=== PATIENT | female | born 1950 | race Caucasian/White ===

== ENCOUNTER 2025-01-26 07:28 | Inpatient (IN) ==
--- NOTE | 2024-12-27 09:13 | PAT Medication Instructions ---
Medication Instructions Date of Service December 27, 2024 Home Medications acyclovir 400 mg tablet 400 mg PO QAM aspirin 81 mg tablet,delayed release 81 mg PO QAM atorvastatin 40 mg tablet 40 mg PO HS bumetanide 1 mg tablet 1 mg PO QAM cholecalciferol (vitamin D3) 25 mcg (1,000 unit) tablet (Vitamin D3) 25 mcg PO QAM coQ10 (ubiquinol) 200 mg capsule 400 mg PO QAM cyanocobalamin (vitamin B-12) 2,500 mcg tablet 2,500 mcg PO QAM levothyroxine 100 mcg tablet 100 mcg PO QAM magnesium citrate 100 mg capsule 100 mg PO HS metoprolol succinate 25 mg tablet,extended release 24 hr 12.5 mg PO QAM montelukast 10 mg tablet 10 mg PO HS pantoprazole 40 mg tablet,delayed release 40 mg PO QAM potassium chloride 20 mEq tablet,extended release 20 meq PO BID sertraline 25 mg tablet 25 mg PO HS turmeric 400 mg capsule 400 mg PO QAM zinc 50 mg capsule 50 mg PO QAM ASK your prescriber and surgeon aspirin 81 mg tablet,delayed release 81 mg PO QAM STOP taking 2 weeks before surgery (or as soon as possible if surgery is within 2 weeks) coQ10 (ubiquinol) 200 mg capsule 400 mg PO QAM turmeric 400 mg capsule 400 mg PO QAM DO NOT take the morning of surgery bumetanide 1 mg tablet 1 mg PO QAM cholecalciferol (vitamin D3) 25 mcg (1,000 unit) tablet (Vitamin D3) 25 mcg PO QAM cyanocobalamin (vitamin B-12) 2,500 mcg tablet 2,500 mcg PO QAM potassium chloride 20 mEq tablet,extended release 20 meq PO BID zinc 50 mg capsule 50 mg PO QAM Take morning of surgery With a small sip of water, OTHERWISE NOTHING TO EAT OR DRINK AFTER MIDNIGHT: acyclovir 400 mg tablet 400 mg PO QAM levothyroxine 100 mcg tablet 100 mcg PO QAM metoprolol succinate 25 mg tablet,extended release 24 hr 12.5 mg PO QAM pantoprazole 40 mg tablet,delayed release 40 mg PO QAM Take evening before surgery atorvastatin 40 mg tablet 40 mg PO HS magnesium citrate 100 mg capsule 100 mg PO HS montelukast 10 mg tablet 10 mg PO HS potassium chloride 20 mEq tablet,extended release 20 meq PO BID sertraline 25 mg tablet 25 mg PO HS Other Notes If you have any questions please call us at [phone] or [phone] or [phone] or [phone]
--- NOTE | 2025-01-02 14:45 | Anesthesiology Consultation ---
Date of Service January 02, 2025 Assessment & Plan (1) Encounter for pre-operative examination: Chart Review Chart Review: Acceptable Risk for Surgery (pending surgeon ordered PCP and cardio clearances ) and Patient seen in Pre Admission Testing - Awaiting PCP clearance 01/08/25 (Radha ABDALLA, [facility])- please fax preop testing to PCP for review - Awaiting cardio clearance 01/09/25 ([facility])- please fax EKG to cardio for review Per PAT appt on 01/02/25, no recent illness/disease exposures, illness related symptoms, or recent illness/disease positive tests. Will leave to surgeon's discretion if preop Covid testing needed Teaching & Discussion Pre-Anesthesia Teaching/Discussion Notes: Instructed NPO after midnight before surgery,except medications with 15 cc of water. Medication instructions provided according to the PAT guidelines. History Surgery Operation Date: 01/26/25 09:35 Proposed Procedures p L1-L2 Decompression, T11-L2 Fusion, with Spinal Cord Monitoring - Lázaro Segundo, Height/Weight Height: 5 ft 5 in Weight: 86.4 kg Allergies Allergy/AdvReac Type Severity Reaction Status Date / Time Iodinated Contrast Media Allergy Severe Difficulty Verified 12/26/24 10:11 Breathing codeine Allergy Intermediate fever and Verified 12/26/24 10:11 hallucination Medications Home Medications Medication Instructions Recorded Confirmed Last Taken acyclovir 400 mg tablet 400 mg PO QAM 12/26/24 12/26/24 Unknown aspirin 81 mg tablet,delayed 81 mg PO QAM 12/26/24 12/26/24 Unknown release atorvastatin 40 mg tablet 40 mg PO HS 12/26/24 12/26/24 Unknown bumetanide 1 mg tablet 1 mg PO QAM 12/26/24 12/26/24 Unknown cholecalciferol (vitamin D3) 25 25 mcg PO QAM 12/26/24 12/26/24 Unknown mcg (1,000 unit) tablet (Vitamin D3) coQ10 (ubiquinol) 200 mg capsule 400 mg PO QAM 12/26/24 12/26/24 Unknown cyanocobalamin (vitamin B-12) 2,500 mcg PO QAM 12/26/24 12/26/24 Unknown 2,500 mcg tablet levothyroxine 100 mcg tablet 100 mcg PO QAM 12/26/24 12/26/24 Unknown magnesium citrate 100 mg capsule 100 mg PO HS 12/26/24 12/26/24 Unknown metoprolol succinate 25 mg 12.5 mg PO QAM 12/26/24 12/26/24 Unknown tablet,extended release 24 hr montelukast 10 mg tablet 10 mg PO HS 12/26/24 12/26/24 Unknown pantoprazole 40 mg tablet,delayed 40 mg PO QAM 12/26/24 12/26/24 Unknown release potassium chloride 20 mEq 20 meq PO BID 12/26/24 12/26/24 Unknown tablet,extended release sertraline 25 mg tablet 25 mg PO HS 12/26/24 12/26/24 Unknown turmeric 400 mg capsule 400 mg PO QAM 12/26/24 12/26/24 Unknown zinc 50 mg capsule 50 mg PO QAM 12/26/24 12/26/24 Unknown Past Medical History Medical History (Updated 01/02/25 @ 15:18 by Karmen Light PA-C) Anxiety CAD (coronary artery disease) s/p 3 overlapping stents to RCA 07/2019 (inferior STEMI) s/p PCI to LCx with stent (LAD attempted (unsuccessful)) 08/2019 s/p 1 vessel CABG 04/2020 Chronic diastolic heart failure Degenerative disc disease GERD (gastroesophageal reflux disease) well controlled and stable Heart failure with reduced ejection fraction 45-50% per 07/2024 ECHO Hx of blood clots 2019>after heart surgery "hospitalized for 10 days"; was put on blood thinners x several months- no issues since Hx of myocardial infarction 2018 Hyperlipidemia Hypertension Hypothyroidism Osteoarthritis Spinal stenosis Thyroid nodule pcp monitors yearly Exercise / Class Metabolic Activity II 4-5 Yardwork/Stairs/Walk up hill (one flight of stairs - no chest pain or SOB ) Past Family History Family History Other No family history of adverse response to anesthesia Past Surgical History Surgical History History of appendectomy History of cataract surgery right/left History of cholecystectomy History of colonoscopy History of coronary artery bypass graft 04/2020>1 bypass at [place] (followed by Dr. Laguna) (CONDON to LAD) History of esophagogastroduodenoscopy (EGD) History of heart artery stent 2018>4 stents placed at [place] History of hysterectomy History of lumbar fusion L2-S1 History of total hip arthroplasty right S/P cervical spinal fusion (2003) C3,4,5 (good rom) [place] teeth removed Past Anesthesia History No Hx of Anesthesia Complications (with exception to reintubation post op from CABG (was slow to wake and not breathing well) ; no issues with previous surgeries ) and No Family Hx of Anesthesia Complications History of PONV No Hx of Motion Sickness and History of PONV Social History Smoking Status: Never smoker Do You Dip or Chew Tobacco: No Hx Alcohol Use: Yes Alcohol type: wine alcohol intake frequency: a few times a month substance use type: does not use Review of Systems Patient denies chest pain, shortness of breath, dyspnea on exertion, cough, wheezing, palpitations. No hx of seizures, stroke, apnea/snoring. No hx of blood transfusions Physical Exam Vital Signs VITALS BP 107/58 P 71 TEMP 98.4 SP02 95% RESP 16 Constitutional no acute distress ENMT Mouth: no TMJ clicking Thyromental Distance: < 3.5 Finger Breadths (3.0) Mallampati Class: I Caps to side teeth and molars Neck + limited neck extension (mild) Respiratory normal respiratory effort; no respiratory distress Auscultation: lungs clear to auscultation bilaterally; no wheezes Cardiovascular Rate/Rhythm: regular rate and regular rhythm Heart Sounds: no murmur Vessels: no carotid bruit Musculoskeletal Spine: + pain with cervical ROM (minimal) Extremities: extremities normal to inspection Psychiatric Orientation: alert Lab Results Anesthesia Preop Results Results Anesthesia Widget: WBC 8.86 K/ul (4.8-10.8) 01/02/25 Hgb 13.5 g/dl (12.0-16.0) 01/02/25 Hct 39.7 % (37.0-47.0) 01/02/25 Plt 245 K/uL (130-400) 01/02/25 Na 139 mmol/L (136-145) 01/02/25 K 3.5 mmol/L (3.5-5.1) 01/02/25 Cl 102 mmol/L (98-107) 01/02/25 CO2 32 mmol/L (21-32) 01/02/25 BUN 16 mg/dl (6-23) 01/02/25 Creat 1.07 mg/dl (0.6-1.2) 01/02/25 Glucose Level 90 mg/dl (70-99(Fasting)) 01/02/25 PT 10.9 Seconds (9.0-12.0) 01/02/25 PTT 25 Seconds (21-31) 01/02/25 INR 1.0 (0.9-1.1) 01/02/25 Urine Color Yellow 01/02/25 Urine Appearance Clear (Clear) 01/02/25 Urine pH 6.0 (4.5-7.5) 01/02/25 Urine Specific [place] 1.006 (1.000-1.030) 01/02/25 Urine Protein Negative (Negative) 01/02/25 Urine Glucose (UA) Negative (Negative) 01/02/25 Urine Ketones Negative (Negative) 01/02/25 Urine Blood Negative (Negative) 01/02/25 Urine Nitrite Negative (Negative) 01/02/25 Urine Bilirubin Negative (Negative) 01/02/25 Urine Urobilinogen Negative (Negative) 01/02/25 Urine Leukocyte Esterase Negative (Negative) 01/02/25 Blood Type A Positive 01/02/25 Antibody Screen NEGATIVE 01/02/25 Testing Electrocardiogram Date: 01/02/25 Findings: + NSR @ (68bpm) Possible old inferior infarct Possible old anterior infarct Chest X-Ray Date: 01/02/25 Findings: + NAD Echocardiogram Date: 07/26/24 EF: 45-50% LV Function: dysfunctional Other Findings: no LVH LV size is normal Mild global LV hypokinesis. RV is normal in size and function Mild AR. Mild MR Cardiac Catheterization Date: 04/08/20 LM= angiographic significant disease LAD= 80-90% stenosis LCx= patient mid vessel stent extending into the first obtuse marginal; there is very minimal in-stent stenosis RCA= 20% mid stenosis within the previously placed stents Impression: Multivessel CAD including 60% proximal and 90% mid LAD. Patient mid LCx-OM1 stent with minimal restenosis. Patent mid RCA stents with mid 20% stenosis Chronic diasolic HF Recommendations - proceed with CABG including CONDON-LAD
[~2025-01-26 07:28] MED LIST: ALBUMIN HUMAN 5% 12.5 GM/250 ML VIAL IV ONE
[2025-01-26] MEDS ORDERED: DEXAMETHASONE SOD INJ 4 MG/ML VIAL ONE (08:24)
[2025-01-26] MEDS ORDERED: PROPOFOL IV EMULSION 10 MG/ML 20 ML VIAL IV ONE (08:24)
[2025-01-26] MEDS ORDERED: ONDANSETRON INJ 2 MG/ML 2 ML VIAL ONE (08:24)
[2025-01-26] MEDS ORDERED: ROCURONIUM BROMIDE 10 MG/ML 5 ML VIAL IV ONE (08:24)
[2025-01-26] MEDS ORDERED: fentaNYL citrate PF 100 MCG/2 ML VIAL ONE (08:24)
[2025-01-26] MEDS ORDERED: LIDOCAINE 2% 2 ML VIAL/AMP(20MG/ML) INFIL ONE (08:24)
[2025-01-26] MEDS: ACETAMINOPHEN 500 MG TAB PO SCH (08:28)
[2025-01-26] MEDS: LR 60ML/HR IV SCH (08:28)
[2025-01-26] MEDS: CeleBREX 200 MG CAP PO SCH (08:28)
[2025-01-26] MEDS: GABAPENTIN 300 MG CAP PO SCH (08:29)
[2025-01-26] MEDS: LR 15ML/HR IV SCH (08:39)
--- NOTE | 2025-01-26 09:04 | History & Physical Bridge Note ---
Date of Service January 26, 2025 History & Physical Bridge Note I have examined the patient, reviewed the History & Physical and in the interval since the performance of the History & Physical I have noted the following changes of clinical significance: no changes noted
--- NOTE | 2025-01-26 09:05 | History & Physical Report ---
Date of Service January 26, 2025 Assessment & Plan (1) Multilevel lumbosacral spondylosis with radiculopathy: Plan: L1-L2 decompression, T11-L2 fusion History of Present Illness Chief Complaint: Back and leg pain Primary Care Provider: NO PCP This is a 74-year-old female who presents with chronic persistent back and leg pain and failed course of nonoperative care is here for surgical invention. Allergies Allergy/AdvReac Type Severity Reaction Status Date / Time Iodinated Contrast Media Allergy Severe Difficulty Verified 01/26/25 08:10 Breathing codeine Allergy Intermediate fever and Verified 01/26/25 08:10 hallucination Home Medications Medication Instructions Recorded Confirmed Type acyclovir 400 mg tablet 400 mg PO QAM 12/26/24 01/26/25 History aspirin 81 mg tablet,delayed 81 mg PO QAM 12/26/24 01/26/25 History release atorvastatin 40 mg tablet 40 mg PO HS 12/26/24 01/26/25 History bumetanide 1 mg tablet 1 mg PO QAM 12/26/24 01/26/25 History cholecalciferol (vitamin D3) 25 25 mcg PO QAM 12/26/24 01/26/25 History mcg (1,000 unit) tablet (Vitamin D3) coQ10 (ubiquinol) 200 mg capsule 400 mg PO QAM 12/26/24 01/26/25 History cyanocobalamin (vitamin B-12) 2,500 mcg PO QAM 12/26/24 01/26/25 History 2,500 mcg tablet levothyroxine 100 mcg tablet 100 mcg PO QAM 12/26/24 01/26/25 History magnesium citrate 100 mg capsule 100 mg PO 12/26/24 01/26/25 History metoprolol succinate 25 mg 12.5 mg PO QAM 12/26/24 01/26/25 History tablet,extended release 24 hr montelukast 10 mg tablet 10 mg PO HS 12/26/24 01/26/25 History pantoprazole 40 mg tablet,delayed 40 mg PO QAM 12/26/24 01/26/25 History release potassium chloride 20 mEq 20 meq PO BID 12/26/24 01/26/25 History tablet,extended release sertraline 25 mg tablet 25 mg PO 12/26/24 01/26/25 History turmeric 400 mg capsule 400 mg PO QAM 12/26/24 01/26/25 History zinc 50 mg capsule 50 mg PO QAM 12/26/24 01/26/25 History Past Med/Surg History Problem List (Updated 01/26/25 @ 09:05 by Lázaro Segundo DO) Multilevel lumbosacral spondylosis with radiculopathy Encounter for pre-operative examination Medical History (Updated 01/26/25 @ 09:05 by Lázaro Segundo DO) Heart failure with reduced ejection fraction 45-50% per 07/2024 ECHO Chronic diastolic heart failure CAD (coronary artery disease) s/p 3 overlapping stents to RCA 07/2019 (inferior STEMI) s/p PCI to LCx with stent (LAD attempted (unsuccessful)) 08/2019 s/p 1 vessel CABG 04/2020 Spinal stenosis Degenerative disc disease Osteoarthritis GERD (gastroesophageal reflux disease) well controlled and stable Hypothyroidism Thyroid nodule pcp monitors yearly Anxiety Hx of blood clots 2019>after heart surgery "hospitalized for 10 days"; was put on blood thinners x several months- no issues since Hx of myocardial infarction 2018 Hypertension Hyperlipidemia Surgical History History of hysterectomy S/P cervical spinal fusion (2003) C3,4,5 (good rom) History of lumbar fusion L2-S1 History of total hip arthroplasty right History of esophagogastroduodenoscopy (EGD) History of colonoscopy History of cholecystectomy History of appendectomy [place] teeth removed History of cataract surgery right/left History of coronary artery bypass graft 04/2020>1 bypass at [place] (followed by Dr. Laguna) (CONDON to LAD) History of heart artery stent 2018>4 stents placed at [place] Family History Other No family history of adverse response to anesthesia Social History Smoking Status: Never smoker Second Hand Exposure: Yes (as a child); Do You Dip or Chew Tobacco: No; Hx Alcohol Use: Yes Alcohol type: wine Preferred Language: Ukrainian Community Education Coordinator Required: No Beliefs That Will Affect Care: None Current Living Situation: Alone Feels Safe at Home: Yes Safety Concerns: Feels Safe At This Time Assistive Devices: None Physical Exam Physical Exam: Patient is alert and oriented heart regular rhythm Lungs clear Results & Data Results & Data Vital Signs (Past 12 Hours) Vital Signs Temp Pulse Resp BP Pulse Ox O2 Del Method 01/26/25 08:08 37.1 C 54 L 20 135/72 99 Room Air
[2025-01-26] MEDS: ceFAZolin 2000MG 2,000 MG/15 ML SYR IV SCH ×2 (09:46→17:47)
[2025-01-26] MEDS: BUPIVACAINE/EPINEPHRINE 0.25% 1:200,000 30 ML VIAL ONE (10:17)
[2025-01-26] MEDS ORDERED: HYDROmorphone INJ 2 MG/ML SYR/VIAL ONE (10:18)
[2025-01-26] MEDS: ceFAZolin 330 MG/ML 1 GM VIAL ONE (10:18)
[2025-01-26] MEDS ORDERED: GLYCOPYRROLATE 0.2 MG/ML VIAL ONE (10:21)
[2025-01-26] MEDS ORDERED: SUGAMMADEX SODIUM 200 MG/2 ML VIAL IV ONE (10:21)
[2025-01-26] MEDS ORDERED: LARYING-O-JET KIT (LTA) ONE (10:54)
[2025-01-26] MEDS ORDERED: NEOSTIGMINE METHYLSULFATE 1 MG/ML 10ML VIAL ONE (11:11)
[2025-01-26] MEDS ORDERED: PHENYLEPHRINE HCL 10 MG/ML VIAL ONE (11:12)
[2025-01-26] MEDS: FLOSEAL HEMOSTATIC MATRIX 10ML TOP ONE (11:49)
--- NOTE | 2025-01-26 12:08 | Operative Report ---
Post Operative Report Pre & Post Diagnosis Operation Date: 01/26/25 09:25 Pre-Op Diagnosis: #1 lumbar spondylosis with radiculopathy #2 lumbar spinal stenosis Post-Op Diagnosis: Same I identified the patient and participated in the time-out.: Yes Procedure Operation Date: 01/26/25 09:25 Actual Procedures #1 revision decompression with bilateral medial facetectomies and foraminotomies T8 12 L1 L1-L2. #2 posterior spinal fusion T11-L2. #3 placed posterior instrumentation T11-L1 with connectors at L2-L3 using medic Creo. #4 interbody fusion L1-L2. #5 placement Spira 9 x 26 mm x 2 at L1-L2. #6 placement locally harvested morselized graft posterior gutters. #7 placement infuse collagen sponge, with Koros in the posterior lateral gutters and os design interbody space. #8 application of versa wrap over the exposed dura. Surgeon Lázaro Segundo, DO Clerk Specialist Herberth Veronica Estimated Blood Loss 200 Findings See Below The patient is 5 foot 5 weighing over 88 kg with a BMI in excess of 32. The patient's body habitus did contribute to significant technical difficulty with positioning exposure and the procedure itself. This at least 50% increased operative time. Specimens None Indications This is a 74-year-old female who presents with severe lumbar radiculopathy and spinal stenosis and is here for surgical intervention. Description of Procedure Patient was met with identified informed consent obtained. Patient was then taken to the operative suite underwent intubation placed in a prone position on the [place] table top Jossue frame. All bony prominences well-padded eyes inspected to ensure no external precipice upon them. This point the thoracolumbar spine was prepped and draped in a sterile fashion. Sharp dissection with the assistance above cautery was performed down to and exposing the lamina and transverse processes of T11 T12-L1 and the instrumentation at L2- L3. Then performed a complete laminectomy of L1 with bilateral medial facetectomies and foraminotomies addressing severe subarticular and foraminal stenosis. This followed by partial laminectomy of T12 with bilateral medial facetectomies to address all subarticular compression. Pedicle screws then placed in T11 T12-L1 bilaterally and connectors attached to the L2-L3 elmer. By way of transforaminal approach on the right I discectomy of L1-L2 was performed endplates guided to subcortical bleeding bone and 9 x 26 mm spiral cage filled with os design bone graft tapped in position. Then proceeded to the left transforaminal region at L1-L2. Again discectomy performed. Endplates guided to subcortical bleeding bone and a second 9 x 26 mm spiral cage filled with os design bone graft tapped in position. The probe size rods were then placed locked in final position bilaterally. The transverse processes of T11-T12 L1-L2 burred to subcortical bleeding bone. Infuse collagen sponge, with Koros and local autograft placed in the posterior gutters. 15 round ARTIS drain inserted. Incision was then closed with 1 Vicryl in the fascia 2-0 Vicryl subcutaneously and 4 Monocryl for final skin closure. Steri-Strips sterile dressing placed. Patient will be back in stable condition. Please note Herberth Veronica was present at the entire surgeon while the patient positioning complex portion of the surgery and final skin closure. I attest to the content of the Intraoperative Record and any orders documented therein. Any exceptions are noted below.
[2025-01-26] MEDS ORDERED: HYDROmorphone INJ 2 MG/ML SYR/VIAL IV PRN (12:29)
[2025-01-26] MEDS ORDERED: MEPERIDINE HCL 25 MG/ML CARP/VIAL IV PRN (12:29)
[2025-01-26] MEDS ORDERED: ePHEDrine sulfate 50 MG/ML AMP IV PRN (12:29)
[2025-01-26] MEDS ORDERED: ATROPINE SULFATE 0.1 MG/ML 10ML SYR IV PRN (12:29)
[2025-01-26] MEDS ORDERED: DEXAMETHASONE SOD INJ 4 MG/ML VIAL IV PRN (12:29)
[2025-01-26] MEDS: ONDANSETRON INJ 2 MG/ML 2 ML VIAL IV PRN (12:40)
--- NOTE | 2025-01-26 12:50 | Fluoroscopy Report ---
FL lumbar spine 2-3V CLINICAL HISTORY: L1-L2 DECOMP, T11-L2 FUSION COMPARISON STUDY: None FLUOROSCOPY TIME: 25 seconds FLUOROSCOPY IMAGES: 4 EXPOSURE DOSE: 16.4 mGy FINDINGS: Fluoroscopy was provided for spinal surgery. IMPRESSION: Intraoperative fluoroscopy. ACT 112: Negative or not required by law. Electronically signed by: Ignacio Andrea M.D. 01/26/2025 12:49 PM
[2025-01-26] MEDS: fentaNYL citrate PF 100 MCG/2 ML VIAL IV PRN (12:55)
--- NOTE | 2025-01-26 13:17 | Anesthesiology Progress Note ---
Date of Service January 26, 2025 Anesthesia Post Procedure Vital Signs Vital Signs: Temp Pulse Resp BP Pulse Ox O2 Del Method O2 Flow Rate 01/26/25 13:05 36.4 C L 64 10 L 125/51 L 100 Room Air 01/26/25 12:55 60 10 L 122/53 L 98 Room Air 01/26/25 12:45 60 10 L 120/57 L 100 Oxymask 5 01/26/25 12:35 64 10 L 129/64 100 Oxymask 5 01/26/25 12:28 36.0 C L 65 16 148/65 H 100 Oxymask 10 01/26/25 08:08 37.1 C 54 L 20 135/72 99 Room Air Pain Intensity Lower Back: Pain Intensity: 5 Transfer of Care Handoff Completed per policy Notes Mental Status: alert / awake / arousable and participated in evaluation Patient Amnestic to Procedure: Yes Nausea / Vomiting: adequately controlled Pain: adequately controlled Airway Patency, RR, SpO2: stable & adequate BP & HR: stable & adequate Hydration State: stable & adequate Anesthetic Complications: no major complications apparent and Pt Satisfied with anesthetic care
[2025-01-26] MEDS ORDERED: ALUMINUM/MAGNESIUM SUSP 30 ML UDC PO PRN (15:55)
[2025-01-26] MEDS ORDERED: HYDROmorphone INJ 1 MG/ML SYRINGE IV PRN (15:55)
[2025-01-26] MEDS ORDERED: NALOXONE HCL 0.4 MG/1 ML VIAL/CARP IV PRN (15:55)
[2025-01-26] MEDS ORDERED: DO NOT ADMINISTER FLU VACCINE PRN (15:55)
[2025-01-26] MEDS ORDERED: ONDANSETRON INJ 2 MG/ML 2 ML VIAL IV PRN (15:55)
[2025-01-26] MEDS ORDERED: hydrOXYzine HCl 25 MG TAB PO PRN (15:55)
[2025-01-26] MEDS ORDERED: METOCLOPRAMIDE HCL INJ 5 MG/ML 2 ML VIAL IV PRN (15:55)
[2025-01-26] MEDS ORDERED: SOD PHOSPHATE/SOD BIPHOSPHATE ENEMA 132 ML BTL PR PRN (15:55)
[2025-01-26] MEDS ORDERED: diphenhydrAMINE Capsule 25 MG CAP PO PRN (15:55)
[2025-01-26] MEDS ORDERED: ONDANSETRON 4 MG OD TAB PO PRN (15:55)
[2025-01-26] MEDS ORDERED: LORazepam 2 MG/1 ML VIAL IV PRN (15:55)
[2025-01-26] MEDS ORDERED: DO NOT ADMINISTER PNEUMOCOCCAL VACCINE PRN (15:55)
[2025-01-26] MEDS ORDERED: MAGNESIUM HYDROXIDE SUSP 30 ML UDC PO PRN (15:55)
[2025-01-26] MEDS ORDERED: bisacodyL 10 MG SUPP PR PRN (15:55)
[2025-01-26] MEDS ORDERED: PROMETHAZINE 12.5 MG/50.5 ML BAG IV PRN (15:55)
[2025-01-26] MEDS ORDERED: ACETAMINOPHEN 1,000 MG/100 ML VIAL IV PRN (15:55)
[2025-01-26] MEDS ORDERED: FAMOTIDINE 20 MG TAB PO PRN (15:55)
[2025-01-26] MEDS: ONDANSETRON INJ 2 MG/ML 2 ML VIAL ONE (16:09)
--- NOTE | 2025-01-26 16:28 | Hospitalist Consultation ---
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 Segundo on 01/26/25. Per primary service for pain control, wound care, anticoagulation and activities. Continue incentive spirometry and PT/OT when appropriate as per primary service. EBL = 200mL and preop Hgb =13.5; monitor H/H for acute blood loss anemia and transfuse blood products PRN. (3) Chronic diastolic heart failure: Appears euvolemic on exam. Continue home Bumex and KCl with judicious IVF use to avoid fluid overload. Monitor volume status closely. (4) Hypothyroidism: Continue levothyroxine. Other Chronic Medical Conditions: HTN - Continue home antihypertensives with hold parameters. Follow routine BP monitoring. GERD - Continue PPI. HLD, CAD s/p stenting and CABG - Continue statin and ASA. Asthma - Continue Singulair. Anxiety - Continue Zoloft. DVT Prophylaxis: SCDs/TEDs as per primary service. Code Status: FULL CODE PCP: RM Davies [ Family Medicine] Disposition: Discharge planning as per primary service. Thank you for this consultation. We will follow the patient with you during their hospital stay. You can reach a member of the [facility] Hospitalist Team 26/[address] [facility] [employer]. Patient seen in collaboration with Dr. Ayala. Please see addendum. I spent a total of 45 minutes coordinating, documenting, and providing care for this patient excluding time spent in the performance of separately billed services or time spent by another provider/QHP. This included personally reviewing all current laboratories and imaging studies, medical reconciliation, outpatient chart review and discussion with specialists. This chart was completed in part utilizing Speech Voice Recognition Software. Grammatical errors, random word insertions, pronoun errors, and incomplete sentences are an occasional consequence of this system due to software limitations, ambient noise, and hardware issues. Any formal questions or concerns about the content, text, or information contained within the body of this dictation should be directly addressed to the provider for clarification. Supervising Physician Co-Signing Physician Notes Attending addendum: The patient was seen and examined in medical floor She is a status post L1-L2 decompression and T11-L2 fusion and has been feeling better since surgery Her back pain is reasonably controlled and she denies any other significant symptoms On examination Sitting on the bed and having dinner without any acute distress Hemodynamically stable Chest was clear to auscultation bilaterally HeartS1-S2, regular Abdomenbenign Extremitiesno edema CNSalert, awake and oriented x 3 no focal motor deficit Her labs, imaging studies and medications reviewed Status post spinal surgery as mentioned earlier and remains medically stable Her other medical conditions remained stable and continue with current medications Agree with assessment plan as outlined above by Lucila Ruelas PA-C and take the full responsibility of care in the hospital Total time taken in documenting all this was [address] Davonte Ayala History of Present Illness Reason for Consultation: Routine Postoperative Medical Management Requesting Physician: Lázaro Segundo DO Attending Physician: Lázaro Segundo DO History of Present Illness Anju Lozano is a 74y/o F with PMHx significant for HTN, asthma, multivessel CAD s/p prior stenting x 4 and CABG in 2020, history of VT, chronic diastolic congestive heart failure, LV systolic dysfunction, Hurtado's esophagus, generalized osteoarthritis, GERD, hypothyroidism, CKD stage III, recurrent shingles, anxiety, colonic polyps, seasonal allergies, vitamin D deficiency, depression, thyroid nodule and HLD who is being seen in consultation for routine postoperative medical management after undergoing elective L1-L2 decompression and T11-L2 fusion performed by Dr. Segundo on 01/26/25. History obtained from the patient and associated chart review. Feeling well postoperatively after receiving some PRN pain medication. Denies any chest pain, abdominal pain or SOB. No prior smoking history. Rare alcohol use. Tolerating sips of water w ithout issue. Allergies Allergy/AdvReac Type Severity Reaction Status Date / Time Iodinated Contrast Media Allergy Severe Difficulty Verified 01/26/25 08:10 Breathing codeine Allergy Intermediate fever and Verified 01/26/25 08:10 hallucination Home Medications Medication Instructions Recorded Confirmed Type acyclovir 400 mg tablet 400 mg PO QAM 12/26/24 01/26/25 History aspirin 81 mg tablet,delayed 81 mg PO QAM 12/26/24 01/26/25 History release atorvastatin 40 mg tablet 40 mg PO HS 12/26/24 01/26/25 History bumetanide 1 mg tablet 1 mg PO QAM 12/26/24 01/26/25 History cholecalciferol (vitamin D3) 25 25 mcg PO QAM 12/26/24 01/26/25 History mcg (1,000 unit) tablet (Vitamin D3) coQ10 (ubiquinol) 200 mg capsule 400 mg PO QAM 12/26/24 01/26/25 History cyanocobalamin (vitamin B-12) 2,500 mcg PO QAM 12/26/24 01/26/25 History 2,500 mcg tablet levothyroxine 100 mcg tablet 100 mcg PO QAM 12/26/24 01/26/25 History magnesium citrate 100 mg capsule 100 mg PO 12/26/24 01/26/25 History metoprolol succinate 25 mg 12.5 mg PO QAM 12/26/24 01/26/25 History tablet,extended release 24 hr montelukast 10 mg tablet 10 mg PO HS 12/26/24 01/26/25 History pantoprazole 40 mg tablet,delayed 40 mg PO QAM 12/26/24 01/26/25 History release potassium chloride 20 mEq 20 meq PO BID 12/26/24 01/26/25 History tablet,extended release sertraline 25 mg tablet 25 mg PO HS 12/26/24 01/26/25 History turmeric 400 mg capsule 400 mg PO QAM 12/26/24 01/26/25 History zinc 50 mg capsule 50 mg PO QAM 12/26/24 01/26/25 History Patient History Medical History Heart failure with reduced ejection fraction 45-50% per 07/2024 ECHO Chronic diastolic heart failure CAD (coronary artery disease) s/p 3 overlapping stents to RCA 07/2019 (inferior STEMI) s/p PCI to LCx with stent (LAD attempted (unsuccessful)) 08/2019 s/p 1 vessel CABG 04/2020 Spinal stenosis Degenerative disc disease Osteoarthritis GERD (gastroesophageal reflux disease) well controlled and stable Hypothyroidism Thyroid nodule pcp monitors yearly Anxiety Hx of blood clots 2019>after heart surgery "hospitalized for 10 days"; was put on blood thinners x several months- no issues since Hx of myocardial infarction 2019 Hypertension Hyperlipidemia Surgical History History of hysterectomy S/P cervical spinal fusion (2003) C3,4,5 (good rom) History of lumbar fusion L2-S1 History of total hip arthroplasty right History of esophagogastroduodenoscopy (EGD) History of colonoscopy History of cholecystectomy History of appendectomy [place] teeth removed History of cataract surgery right/left History of coronary artery bypass graft 04/2020>1 bypass at [facility] (followed by Dr. 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 Physical Exam Physical Exam: General: Elderly, F. NAD. Laying down in bed. Very pleasant. A&Ox4. Conversing appropriately. HEENT: Normocephalic, atraumatic. Conjunctivae normal. External ear and nose normal, oropharynx normal. Respiratory: Normal respiratory effort, lungs clear to auscultation bilaterally. On RA. Cardiovascular: Regular rate and rhythm, normal peripheral pulses. + sternotomy scar. SCDs/TEDs on BLE. Abdomen/GI: Normal bowel sounds, soft, nondistended, nontender to palpation in all quadrants. : Beltran catheter intact/patent and draining clear, yellow urine without issue. Extremities/MSK: Surgical dressing on back C/D/I. ARTIS drain x 1 intact and draining serosanguineous output. Intact BLE tactile sensation. Results & Data Results & Data Vital Signs (Past 12 Hours) Vital Signs Temp Pulse Pulse Resp BP BP Pulse Ox 01/26/25 16:14 01/26/25 16:01 36.4 C L 55 L 16 116/67 100 01/26/25 15:30 36.4 C L 67 16 114/76 98 01/26/25 15:00 53 L 15 119/61 95 01/26/25 14:45 54 L 12 116/56 L 92 01/26/25 14:30 47 L 10 L 106/63 92 01/26/25 14:15 47 L 12 122/56 L 99 01/26/25 14:00 47 L 8 L 122/56 L 99 01/26/25 13:45 48 L 12 125/55 L 100 01/26/25 13:40 51 L 4 L 117/54 L 100 01/26/25 13:25 66 14 118/58 L 100 01/26/25 13:15 54 L 10 L 120/49 L 99 01/26/25 13:05 36.4 C L 64 10 L 125/51 L 100 01/26/25 12:55 60 10 L 122/53 L 98 01/26/25 12:45 60 10 L 120/57 L 100 01/26/25 12:35 64 10 L 129/64 100 01/26/25 12:28 36.0 C L 65 16 148/65 H 100 01/26/25 08:08 37.1 C 54 L 20 135/72 99 O2 Del Method O2 Flow Rate 01/26/25 16:14 Room Air 01/26/25 16:01 Room Air 01/26/25 15:30 Room Air 2 01/26/25 15:00 Nasal Cannula 2 01/26/25 14:45 Nasal Cannula 2 01/26/25 14:30 Nasal Cannula 2 01/26/25 14:15 Nasal Cannula 2 01/26/25 14:00 Nasal Cannula 2 01/26/25 13:45 Nasal Cannula 2 01/26/25 13:40 Nasal Cannula 2 01/26/25 13:25 Room Air 01/26/25 13:15 Room Air 01/26/25 13:05 Room Air 01/26/25 12:55 Room Air 01/26/25 12:45 Oxymask 5 01/26/25 12:35 Oxymask 5 01/26/25 12:28 Oxymask 10 01/26/25 08:08 Room Air Diagnostic Findings Lumbar Spine X-Ray 01/26/25 00:00 FL lumbar spine 2-3V CLINICAL HISTORY: L1-L2 DECOMP, T11-L2 FUSION COMPARISON STUDY: None FLUOROSCOPY TIME: 25 seconds FLUOROSCOPY IMAGES: 4 EXPOSURE DOSE: 16.4 mGy FINDINGS: Fluoroscopy was provided for spinal surgery. IMPRESSION: Intraoperative fluoroscopy. ACT 112: Negative or not required by law. Electronically signed by: Ignacio Andrea M.D. 01/26/2025 12:49 PM (4) Hypothyroidism Hypothyroidism type: unspecified Qualified Code(s): E03.9 - Hypothyroidism, unspecified
[2025-01-26] MEDS: HYDROmorphone INJ 0.5 MG/0.5 ML SYR IV PRN (16:44)
[2025-01-26] MEDS: oxyCODONE HCL IR 5 MG TAB (IMMEDIATE RELEASE) PO PRN (17:47)
[2025-01-26] MEDS: traMADol HCL 50 MG TABLET PO PRN (20:31)
[2025-01-26] MEDS: DOCUSATE SODIUM/SENNA 50/8.6MG TAB PO SCH (20:32)
[2025-01-26] MEDS: ATORVASTATIN 40 MG TAB PO SCH (20:32)
[2025-01-26] MEDS: LORazepam 0.5 MG TAB PO PRN (20:32)
[2025-01-26] MEDS: MONTELUKAST SODIUM 10 MG TABLET PO SCH (20:32)
[2025-01-26] MEDS: POTASSIUM CHLORIDE CRTAB 20 MEQ TABCR PO SCH (20:32)
[2025-01-26] MEDS: SERTRALINE HCL 50 MG TABLET PO SCH (20:33)
[2025-01-26] MEDS ORDERED: NON-FORMULARY MEDICATION (Magnesium Citrate 100 mg Capsule) PO SCH (21:00)
[2025-01-27] MEDS: POLYETHYLENE (MIRALAX) 17 GM PACK PO SCH (05:52)
[2025-01-27 06:59] LABS: Basophils # (auto) 0.02 K/uL (0.00-0.20); Basophils % (auto) 0.2 %; Eosinophils # (auto) 0.01 K/uL (0.00-0.50); Eosinophils % (auto) 0.1 %; Hemoglobin 10.7 g/dl (12.0-16.0); Immature Granulocytes # (auto) 0.05 K/uL (0.01-0.20); Immature Granulocytes % (auto) 0.4 %; Lymphocytes # (auto) 1.43 K/uL (1.20-3.40); Lymphocytes % (auto) 12.1 %; Mean Corpuscular Hemoglobin 30.5 pg (25.0-34.0); Mean Corpuscular Hgb Conc 33.4 g/dL (32.0-36.0); Mean Corpuscular Volume 91.2 fL (80.0-100.0); Mean Platelet Volume 9.1 fL (9.4-12.4); Monocytes # (auto) 0.44 K/uL (0.11-0.59); Monocytes % (auto) 3.7 %; Neutrophils # (auto) 9.83 K/uL (1.40-6.50); Neutrophils % (auto) 83.5 %; Platelet Count 216 K/uL (130-400); RDW Coefficient of Variation 12.8 % (11.5-14.5); RDW Standard Deviation 42.5 fL (36.4-46.3); Red Blood Count 3.51 M/uL (4.20-5.40); White Blood Count 11.78 K/ul (4.8-10.8)
[2025-01-27 07:15] LABS: BUN Creatinine Ratio 20.7 (10-20); Calcium 8.9 mg/dl (8.6-10.3); Creatinine Clr Calc Pharmacy 47.6 ml/min; Magnesium 2.1 mg/dl (1.7-2.4); Potassium 4.4 mmol/L (3.5-5.1)
[2025-01-27] MEDS: LEVOTHYROXINE SODIUM 100 MCG TABLET PO SCH (08:14)
[2025-01-27] MEDS: PANTOprazole 40 MG TAB PO SCH (08:14)
[2025-01-27] MEDS: dexAMETHasone 6 MG in SYRINGE 0 ML IV SCH (08:14)
[2025-01-27] MEDS: CYANOCOBALAMIN (B-12) 2,500 MCG TABLET PO SCH (08:15)
[2025-01-27] MEDS: ASPIRIN 81 MG ECTAB PO SCH (08:15)
[2025-01-27] MEDS: CHOLECALCIFEROL 25 MCG (1000 UNITS) TAB PO SCH (08:15)
[2025-01-27] MEDS: BUMETANIDE 1 MG TAB PO SCH (08:17)
[2025-01-27] MEDS: METOPROLOL SUCC 25MG EXT REL TAB PO SCH (08:20)
[2025-01-27] MEDS ORDERED: NON-FORMULARY MEDICATION (Zinc 50 mg Capsule) PO SCH (09:00)
[2025-01-27] MEDS ORDERED: NON-FORMULARY MEDICATION (Coq10 (Ubiquinol) 200 mg Capsule) PO SCH (09:00)
--- NOTE | 2025-01-27 09:59 | Orthopedic Progress Note ---
Date of Service January 27, 2025 Assessment & Plan (1) Multilevel lumbosacral spondylosis with radiculopathy: Plan: At this time continue physical therapy monitor her ARTIS output possible discharge home Wednesday. Admission and Anticipated Discharge Date Admission Date: January 26, 2025 Subjective Back pain controlled leg symptoms markedly improved Physical Exam Physical Exam: Patient is been up and ambulating. Excellent strength testing. Results & Data Vital Signs (Past 12 Hours) Vital Signs Temp Pulse Pulse Pulse Resp BP BP 01/27/25 08:24 56 L 01/27/25 08:22 36.7 C 56 L 16 122/68 01/27/25 04:51 36.6 C 63 14 116/65 01/26/25 23:57 36.4 C L 68 12 123/65 Pulse Ox O2 Del Method 01/27/25 08:24 01/27/25 08:22 98 Room Air 01/27/25 04:51 96 Room Air 01/26/25 23:57 93 Room Air Queries Orthopedic Spine Obesity: Yes
--- NOTE | 2025-01-27 12:49 | Hospitalist Progress Note ---
Date of Service January 27, 2025 Assessment & Plan (1) Multilevel lumbosacral spondylosis with radiculopathy: (2) S/P spinal surgery: (3) Chronic diastolic heart failure: (4) Hypothyroidism: Plan Anju Lozano is a 74y/o F with PMHx significant for HTN, asthma, multivessel CAD s/p prior stenting x 4 and CABG in 2020, history of NC, chronic diastolic congestive heart failure, LV systolic dysfunction, Hurtado's esophagus, generalized osteoarthritis, GERD, hypothyroidism, CKD stage III, recurrent shingles, anxiety, colonic polyps, seasonal allergies, vitamin D deficiency, depression, thyroid nodule and HLD who is being seen in consultation for routine postoperative medical management after undergoing elective L1-L2 decompression and T11-L2 fusion performed by Dr. Segundo on 01/26/25. #Lumbar radiculopathy s/p decompression and fusion Per primary service for pain control, wound care, anticoagulation and activities. Continue incentive spirometry and PT/OT when appropriate as per primary service. #Acute blood loss anemia 2/2 post op EBL = 200mL and preop Hgb =13.5; monitor H/H for acute blood loss anemia and transfuse blood products PRN post op anemia 10, follow cbc in am #Chronic HFpEF Appears euvolemic on exam. Continue home Bumex and KCl with judicious IVF use to avoid fluid overload. Monitor volume status closely. #Relative bradycardia #CAD s/p stenting heart rates persistently in 40-50s documented hold BB continue asa and statin follow up PCP #Hypothyroidism Continue levothyroxine. Other Chronic Medical Conditions: HTN - Continue home antihypertensives with hold parameters. Follow routine BP monitoring. GERD - Continue PPI. HLD, CAD s/p stenting and CABG - Continue statin and ASA. Asthma - Continue Singulair. Anxiety - Continue Zoloft. DVT Prophylaxis: SCDs/TEDs as per primary service. Code Status: FULL CODE PCP: RM Davies [ Family Medicine] Admission and Anticipated Discharge Date Admission Date: January 26, 2025 Subjective NAEO sitting in bedside chair reports some discomfort with positioning but otherwise no other acute concerns this am Physical Exam Constitutional: WD/WN, vitals as above Respiratory: normal respiratory effort, lungs clear to auscultation Cardiovascular: RRR, no murmur, no edema Gastrointestinal (Abdomen): normal bowel sounds, soft, nontender, no hepatosplenomegaly Results & Data Results & Data Vital Signs (Past 12 Hours) Vital Signs Temp Pulse Pulse Pulse Resp BP BP 01/27/25 11:34 36.7 C 59 L 16 116/70 01/27/25 08:24 56 L 01/27/25 08:22 36.7 C 56 L 16 122/68 01/27/25 04:51 36.6 C 63 14 116/65 Pulse Ox O2 Del Method 01/27/25 11:34 97 Room Air 01/27/25 08:24 01/27/25 08:22 98 Room Air 01/27/25 04:51 96 Room Air Laboratory Results Short CBC 01/27/25 Range/Units 06:37 WBC 11.78 H (4.8-10.8) K/ul Hgb 10.7 L (12.0-16.0) g/dl Hct 32.0 L (37.0-47.0) % Plt Count 216 (130-400) K/uL BMP 01/27/25 06:37 Sodium 136 Potassium 4.4 Chloride 101 Carbon Dioxide 29 BUN 23 Creatinine 1.11 Glucose 168 H Calcium 8.9 Medications Administered Home Medications Medication Instructions Recorded Confirmed Last Taken acyclovir 400 mg tablet 400 mg PO QAM 12/26/24 01/26/25 01/26/25 04:30 aspirin 81 mg tablet,delayed 81 mg PO QAM 12/26/24 01/26/25 01/26/25 04:30 release atorvastatin 40 mg tablet 40 mg PO HS 12/26/24 01/26/25 01/25/25 19:00 bumetanide 1 mg tablet 1 mg PO QAM 12/26/24 01/26/25 01/25/25 08:00 cholecalciferol (vitamin D3) 25 25 mcg PO QAM 12/26/24 01/26/25 2 Weeks Ago mcg (1,000 unit) tablet (Vitamin ~01/12/25 D3) coQ10 (ubiquinol) 200 mg capsule 400 mg PO QAM 12/26/24 01/26/25 2 Weeks Ago ~01/12/25 cyanocobalamin (vitamin B-12) 2,500 mcg PO QAM 12/26/24 01/26/25 2 Weeks Ago 2,500 mcg tablet ~01/12/25 levothyroxine 100 mcg tablet 100 mcg PO QAM 12/26/24 01/26/25 01/26/25 04:30 magnesium citrate 100 mg capsule 100 mg PO 12/26/24 01/26/25 01/25/25 19:00 metoprolol succinate 25 mg 12.5 mg PO QAM 12/26/24 01/26/25 01/26/25 04:30 tablet,extended release 24 hr montelukast 10 mg tablet 10 mg PO HS 12/26/24 01/26/25 01/25/25 19:00 pantoprazole 40 mg tablet,delayed 40 mg PO QA 12/26/24 01/26/25 01/26/25 04:30 release potassium chloride 20 mEq 20 meq PO BID 12/26/24 01/26/25 01/25/25 19:00 tablet,extended release sertraline 25 mg tablet 25 mg PO 12/26/24 01/26/25 01/25/25 19:00 turmeric 400 mg capsule 400 mg PO [facility] 12/26/24 01/26/25 2 Weeks Ago ~01/12/25 zinc 50 mg capsule 50 mg PO [facility] 12/26/24 01/26/25 2 Weeks Ago ~01/12/25 oxycodone 5 mg tablet 5 mg PO Q6H PRN pain #30 tabs 01/27/25 Unknown tramadol 50 mg tablet 50 mg PO Q6H PRN pain, moderate 01/27/25 Unknown #30 tabs Active Medications Generic Name Dose Route Start Last Admin Trade Name Freq PRN Reason Stop Dose Admin Aspirin 81 mg 01/27/25 09:00 01/27/25 08:15 Aspirin 81 Mg Ectab PO 02/26/25 08:59 81 mg QAM MATTIE Administration Atorvastatin Calcium 40 mg 01/26/25 21:00 01/26/25 20:32 Atorvastatin 40 Mg Tab PO 02/25/25 20:59 40 mg HS MATTIE Administration Bumetanide 1 mg 01/27/25 09:00 01/27/25 08:17 Bumetanide 1 Mg Tab PO 02/26/25 08:59 1 mg QAM MATTIE Administration Cyanocobalamin 2,500 mcg 01/27/25 09:00 01/27/25 08:15 Cyanocobalamin (B-12) 2,500 Mcg Tablet PO 02/26/25 08:59 2,500 mcg QAM MATTIE Administration Hydromorphone HCl 0.5 mg 01/26/25 15:55 01/26/25 16:44 Hydromorphone Inj 0.5 Mg/0.5 Ml Syr IV 02/09/25 15:54 0.5 mg Q3H PRN Administration MODERATE Pain (Scale 4,5,6) & Pre PT Dexamethasone 6 mg/ Syringe 1.5 mls @ 1 mls/min 01/27/25 09:00 01/27/25 08:14 IV 01/29/25 09:02 1 mls/min DAILY MATTIE Administration Levothyroxine Sodium 100 mcg 01/27/25 09:00 01/27/25 08:14 Levothyroxine Sodium 100 Mcg Tablet PO 02/26/25 08:59 100 mcg QAM MATTIE Administration Lorazepam 0.5 mg 01/26/25 15:55 01/26/25 20:32 Lorazepam 0.5 Mg Tab PO 02/25/25 15:54 0.5 mg Q8H PRN Administration Sedation/Anxiety Metoprolol Succinate 12.5 mg 01/27/25 09:00 01/27/25 08:20 Metoprolol Succ 25mg Ext Rel Tab PO 02/26/25 08:59 Not Given QAM MATTIE Montelukast Sodium 10 mg 01/26/25 21:00 01/26/25 20:32 Montelukast Sodium 10 Mg Tablet PO 02/25/25 20:59 10 mg HS MATTIE Administration Oxycodone HCl 5 - 10 mg 01/26/25 15:55 01/27/25 11:04 Oxycodone Hcl Ir 5 Mg Tab (Immediate Release) PO 02/09/25 15:54 10 mg Q4H PRN Administration Pain & Pre PT Pantoprazole Sodium 40 mg 01/27/25 09:00 01/27/25 08:14 Pantoprazole 40 Mg Tab PO 02/26/25 08:59 40 mg QAM MATTIE Administration Polyethylene Glycol 17 gm 01/27/25 06:00 01/27/25 12:03 Polyethylene (Miralax) 17 Gm Pack PO 02/26/25 05:59 17 gm Q6 MATTIE Administration Potassium Chloride 20 meq 01/26/25 21:00 01/27/25 08:14 Potassium Chloride Crtab 20 Meq Tabcr PO 02/25/25 20:59 20 meq BID MATTIE Administration Senna/Docusate Sodium 2 tab 01/26/25 21:00 01/26/25 20:32 Docusate Sodium/Senna 50/8.6mg Tab PO 02/25/25 20:59 2 tab HS MATTIE Administration Sertraline HCl 25 mg 01/26/25 21:00 01/26/25 20:33 Sertraline Hcl 50 Mg Tablet PO 02/25/25 20:59 25 mg HS MATTIE Administration Tramadol HCl 50 - 100 mg 01/26/25 15:55 01/26/25 20:31 Tramadol Hcl 50 Mg Tablet PO 02/25/25 15:54 50 mg Q4H PRN Administration Moderate-Severe pain & Pre PT Vitamin D 25 mcg 01/27/25 09:00 01/27/25 08:15 Cholecalciferol 25 Mcg (1000 Units) Tab PO 02/26/25 08:59 25 mcg QAM MATTIE Administration (4) Hypothyroidism Hypothyroidism type: unspecified Qualified Code(s): E03.9 - Hypothyroidism, unspecified
[2025-01-27] MEDS: ACETAMINOPHEN 500 MG TAB PO PRN (15:42)
[2025-01-28 07:42] LABS: Hematocrit (blood only) 33.6 % (37.0-47.0); Hemoglobin 11.1 g/dl (12.0-16.0); Mean Corpuscular Hemoglobin 30.3 pg (25.0-34.0); Mean Corpuscular Volume 91.8 fL (80.0-100.0); Platelet Count 208 K/uL (130-400); RDW Standard Deviation 43.6 fL (36.4-46.3); Red Blood Count 3.66 M/uL (4.20-5.40); White Blood Count 10.23 K/ul (4.8-10.8)
--- NOTE | 2025-01-28 08:32 | Orthopedic Progress Note ---
Date of Service January 28, 2025 Assessment & Plan (1) Multilevel lumbosacral spondylosis with radiculopathy: Plan: Anju is postoperative day 2 status post T11-L2 decompression and fusion. Will work on pain control today. Continue with aggressive bowel regimen. DVT prophylaxis is in the form of teds and SCDs. Maintain ARTIS drain. Continue ambulation and physical therapy. Will consult with the hospitalist team regarding her metoprolol. Anticipate discharge home tomorrow Admission and Anticipated Discharge Date Admission Date: January 26, 2025 Subjective Anju is postoperative day 2 status post T11-L2 decompression and fusion. Has increase in lower back pain today. She is passing flatus but no bowel movement. ARTIS drain output last shift was 50 cc. Yesterday in physical therapy Aml[place] 280 feet. Lower extremity symptoms greatly improved. She is concerned about resuming her metoprolol. Service Developer is Dr. Farris Review of Systems Review of Systems: All systems reviewed & are unremarkable except as noted in HPI & below Physical Exam Physical Exam: She sitting in a chair no acute distress eating breakfast Alert and oriented x 3 Strength is intact bilateral lower extremities Thoracolumbar dressing is clean dry and intact with functioning ARTIS drain Results & Data Vital Signs (Past 12 Hours) Vital Signs Temp Pulse Pulse Resp BP BP Pulse Ox 01/28/25 08:03 36.8 C 57 L 18 127/62 98 01/28/25 00:21 36.5 C 62 18 119/62 97 O2 Del Method 01/28/25 08:03 Room Air 01/28/25 00:21 Room Air Queries Orthopedic Spine Obesity: Yes
--- NOTE | 2025-01-28 11:31 | Hospitalist Progress Note ---
Date of Service January 28, 2025 Assessment & Plan (1) Multilevel lumbosacral spondylosis with radiculopathy: (2) S/P spinal surgery: (3) Chronic diastolic heart failure: (4) Hypothyroidism: Plan Anju Lozano is a 74y/o F with PMHx significant for HTN, asthma, multivessel CAD s/p prior stenting x 4 and CABG in 2020, history of HI, chronic diastolic congestive heart failure, LV systolic dysfunction, Hurtado's esophagus, generalized osteoarthritis, GERD, hypothyroidism, CKD stage III, recurrent shingles, anxiety, colonic polyps, seasonal allergies, vitamin D deficiency, depression, thyroid nodule and HLD who is being seen in consultation for routine postoperative medical management after undergoing elective L1-L2 decompression and T11-L2 fusion performed by Dr. Segundo on 01/26/25. Holding BB 2/2 fairly low HR iso post op recovery would recommend Cards follow up also to prevent any risk for falls. #Lumbar radiculopathy s/p decompression and fusion Per primary service for pain control, wound care, anticoagulation and activities. Continue incentive spirometry and PT/OT when appropriate as per primary service: patient to d/c home possible tomorrow #Acute blood loss anemia 2/2 post op EBL = 200mL and preop Hgb =13.5; monitor H/H for acute blood loss anemia and transfuse blood products PRN post op anemia 10-->11.1 Stable, #Chronic HFpEF Appears euvolemic on exam. Continue home Bumex and KCl with judicious IVF use to avoid fluid overload. Monitor volume status closely. #Relative bradycardia #CAD s/p stenting heart rates persistently in 40-50s documented hold BB for now, discussed follow up with pcp continue asa and statin follow up PCP #Hypothyroidism Continue levothyroxine. Other Chronic Medical Conditions: HTN - Continue home antihypertensives with hold parameters. Follow routine BP monitoring. GERD - Continue PPI. HLD, CAD s/p stenting and CABG - Continue statin and ASA. Asthma - Continue Singulair. Anxiety - Continue Zoloft. DVT Prophylaxis: SCDs/TEDs as per primary service. Code Status: FULL CODE PCP: RM Davies [ Family Medicine] Admission and Anticipated Discharge Date Admission Date: January 26, 2025 Subjective NAEO Reports doing well with PT, just experiencing post-op discomfort as expected states she lives alone but family will be with her when she returns home Physical Exam Constitutional: WD/WN, vitals as above Respiratory: normal respiratory effort, lungs clear to auscultation Cardiovascular: RRR, no murmur, no edema Gastrointestinal (Abdomen): normal bowel sounds, soft, nontender, no hepatosplenomegaly Musculoskeletal: no cyanosis or clubbing, extremities motor strength 5/5 Results & Data Results & Data Vital Signs (Past 12 Hours) Vital Signs Temp Pulse Pulse Resp BP BP Pulse Ox 01/28/25 08:03 36.8 C 57 L 18 127/62 98 01/28/25 00:21 36.5 C 62 18 119/62 97 O2 Del Method 01/28/25 08:03 Room Air 01/28/25 00:21 Room Air Laboratory Results Short CBC 01/28/25 Range/Units 07:20 WBC 10.23 (4.8-10.8) K/ul Hgb 11.1 L (12.0-16.0) g/dl Hct 33.6 L (37.0-47.0) % Plt Count 208 (130-400) K/uL Medications Administered Home Medications Medication Instructions Recorded Confirmed Last Taken acyclovir 400 mg tablet 400 mg PO QAM 12/26/24 01/26/25 01/26/25 04:30 aspirin 81 mg tablet,delayed 81 mg PO QAM 12/26/24 01/26/25 01/26/25 04:30 release atorvastatin 40 mg tablet 40 mg PO 12/26/24 01/26/25 01/25/25 19:00 bumetanide 1 mg tablet 1 mg PO QAM 12/26/24 01/26/25 01/25/25 08:00 cholecalciferol (vitamin D3) 25 25 mcg PO QAM 12/26/24 01/26/25 2 Weeks Ago mcg (1,000 unit) tablet (Vitamin ~01/12/25 D3) coQ10 (ubiquinol) 200 mg capsule 400 mg PO QAM 12/26/24 01/26/25 2 Weeks Ago ~01/12/25 cyanocobalamin (vitamin B-12) 2,500 mcg PO QAM 12/26/24 01/26/25 2 Weeks Ago 2,500 mcg tablet ~01/12/25 levothyroxine 100 mcg tablet 100 mcg PO QAM 12/26/24 01/26/25 01/26/25 04:30 magnesium citrate 100 mg capsule 100 mg PO 12/26/24 01/26/25 01/25/25 19:00 metoprolol succinate 25 mg 12.5 mg PO [facility] 12/26/24 01/26/25 01/26/25 04:30 tablet,extended release 24 hr montelukast 10 mg tablet 10 mg PO 12/26/24 01/26/25 01/25/25 19:00 pantoprazole 40 mg tablet,delayed 40 mg PO [facility] 12/26/24 01/26/25 01/26/25 04:30 release potassium chloride 20 mEq 20 meq PO BID 12/26/24 01/26/25 01/25/25 19:00 tablet,extended release sertraline 25 mg tablet 25 mg PO 12/26/24 01/26/25 01/25/25 19:00 turmeric 400 mg capsule 400 mg PO [facility] 12/26/24 01/26/25 2 Weeks Ago ~01/12/25 zinc 50 mg capsule 50 mg PO [facility] 12/26/24 01/26/25 2 Weeks Ago ~01/12/25 oxycodone 5 mg tablet 5 mg PO Q6H PRN pain #30 tabs 01/27/25 Unknown tramadol 50 mg tablet 50 mg PO Q6H PRN pain, moderate 01/27/25 Unknown #30 tabs Active Medications Generic Name Dose Route Start Last Admin Trade Name Freq PRN Reason Stop Dose Admin Acetaminophen 1,000 mg 01/26/25 15:55 01/28/25 09:38 Acetaminophen 500 Mg Tab PO 02/25/25 15:54 1,000 mg Q8H PRN Administration MILD Pain Scale 1,2,3 & Pre PT Aspirin 81 mg 01/27/25 09:00 01/28/25 09:34 Aspirin 81 Mg Ectab PO 02/26/25 08:59 81 mg QAM MATTIE Administration Atorvastatin Calcium 40 mg 01/26/25 21:00 01/27/25 21:26 Atorvastatin 40 Mg Tab PO 02/25/25 20:59 40 mg HS MATTIE Administration Bumetanide 1 mg 01/27/25 09:00 01/28/25 09:35 Bumetanide 1 Mg Tab PO 02/26/25 08:59 1 mg QAM MATTIE Administration Cyanocobalamin 2,500 mcg 01/27/25 09:00 01/28/25 09:34 Cyanocobalamin (B-12) 2,500 Mcg Tablet PO 02/26/25 08:59 2,500 mcg QAM MATTIE Administration Hydromorphone HCl 0.5 mg 01/26/25 15:55 01/26/25 16:44 Hydromorphone Inj 0.5 Mg/0.5 Ml Syr IV 02/09/25 15:54 0.5 mg Q3H PRN Administration MODERATE Pain (Scale 4,5,6) & Pre PT Dexamethasone 6 mg/ Syringe 1.5 mls @ 1 mls/min 01/27/25 09:00 01/28/25 09:35 IV 01/29/25 09:02 1 mls/min DAILY MATTIE Administration Levothyroxine Sodium 100 mcg 01/27/25 09:00 01/28/25 09:34 Levothyroxine Sodium 100 Mcg Tablet PO 02/26/25 08:59 100 mcg QAM MATTIE Administration Lorazepam 0.5 mg 01/26/25 15:55 01/26/25 20:32 Lorazepam 0.5 Mg Tab PO 02/25/25 15:54 0.5 mg Q8H PRN Administration Sedation/Anxiety Metoprolol Succinate 12.5 mg 01/27/25 09:00 01/27/25 08:20 Metoprolol Succ 25mg Ext Rel Tab PO 02/26/25 08:59 Not Given QAM MATTIE Montelukast Sodium 10 mg 01/26/25 21:00 01/27/25 21:26 Montelukast Sodium 10 Mg Tablet PO 02/25/25 20:59 10 mg HS MATTIE Administration Oxycodone HCl 5 - 10 mg 01/26/25 15:55 01/28/25 06:15 Oxycodone Hcl Ir 5 Mg Tab (Immediate Release) PO 02/09/25 15:54 10 mg Q4H PRN Administration Pain & Pre PT Pantoprazole Sodium 40 mg 01/27/25 09:00 01/28/25 09:34 Pantoprazole 40 Mg Tab PO 02/26/25 08:59 40 mg QAM MATTIE Administration Polyethylene Glycol 17 gm 01/27/25 06:00 01/28/25 06:14 Polyethylene (Miralax) 17 Gm Pack PO 02/26/25 05:59 17 gm Q6 MATTIE Administration Potassium Chloride 20 meq 01/26/25 21:00 01/28/25 09:38 Potassium Chloride Crtab 20 Meq Tabcr PO 02/25/25 20:59 20 meq BID MATTIE Administration Senna/Docusate Sodium 2 tab 01/26/25 21:00 01/27/25 21:26 Docusate Sodium/Senna 50/8.6mg Tab PO 02/25/25 20:59 2 tab HS MATTIE Administration Sertraline HCl 25 mg 01/26/25 21:00 01/27/25 21:26 Sertraline Hcl 50 Mg Tablet PO 02/25/25 20:59 25 mg HS MATTIE Administration Tramadol HCl 50 - 100 mg 01/26/25 15:55 01/26/25 20:31 Tramadol Hcl 50 Mg Tablet PO 02/25/25 15:54 50 mg Q4H PRN Administration Moderate-Severe pain & Pre PT Vitamin D 25 mcg 01/27/25 09:00 01/28/25 09:35 Cholecalciferol 25 Mcg (1000 Units) Tab PO 02/26/25 08:59 25 mcg QAM MATTIE Administration (4) Hypothyroidism Hypothyroidism type: unspecified Qualified Code(s): E03.9 - Hypothyroidism, unspecified
--- NOTE | 2025-01-29 10:15 | Hospitalist Progress Note ---
Date of Service January 29, 2025 Assessment & Plan (1) Multilevel lumbosacral spondylosis with radiculopathy: (2) S/P spinal surgery: (3) Chronic diastolic heart failure: (4) Hypothyroidism: Plan Anju Lozano is a 74y/o F with PMHx significant for HTN, asthma, multivessel CAD s/p prior stenting x 4 and CABG in 2020, history of [place], chronic diastolic congestive heart failure, LV systolic dysfunction, Hurtado's esophagus, generalized osteoarthritis, GERD, hypothyroidism, CKD stage III, recurrent shingles, anxiety, colonic polyps, seasonal allergies, vitamin D deficiency, depression, thyroid nodule and HLD who is being seen in consultation for routine postoperative medical management after undergoing elective L1-L2 decompression and T11-L2 fusion performed by Dr. Segundo on 01/26/25. Holding BB 2/2 fairly low HR iso post op recovery would recommend Cards follow up also to prevent any risk for falls. Patient medically stable for discharge--final dispo planning per Orthopedics. #Lumbar radiculopathy s/p decompression and fusion Per primary service for pain control, wound care, anticoagulation and activities. Continue incentive spirometry and PT/OT when appropriate as per primary service: patient to d/c home possible tomorrow #Acute blood loss anemia 2/2 post op *stable EBL = 200mL and preop Hgb =13.5; monitor H/H for acute blood loss anemia and transfuse blood products PRN post op anemia 10-->11.1 Stable. #Chronic HFpEF Appears euvolemic on exam. Continue home Bumex and KCl #Relative bradycardia #CAD s/p stenting heart rates persistently in 40-50s documented hold BB for now, discussed follow up with pcp continue asa and statin follow up PCP #Hypothyroidism Continue levothyroxine. Other Chronic Medical Conditions: HTN - Continue home antihypertensives with hold parameters. Follow routine BP monitoring. GERD - Continue PPI. HLD, CAD s/p stenting and CABG - Continue statin and ASA. Asthma - Continue Singulair. Anxiety - Continue Zoloft. DVT Prophylaxis: SCDs/TEDs as per primary service. Code Status: FULL CODE PCP: MR Davies [ Family Medicine] Admission and Anticipated Discharge Date Admission Date: January 26, 2025 Subjective NAEO reports feeling great today with controlled pain and ambulating without overt difficulty she denies dizziness/lightheadness or other acute concerns Physical Exam Constitutional: WD/WN, vitals as above Respiratory: normal respiratory effort, lungs clear to auscultation Cardiovascular: RRR, no murmur, no edema Gastrointestinal (Abdomen): normal bowel sounds, soft, nontender, no hepatosp lenomegaly Neurologic: PERRL, EOMI, accommodation nl, no face palsy, no dysarthria Results & Data Results & Data Medications Administered Home Medications Medication Instructions Recorded Confirmed Last Taken acyclovir 400 mg tablet 400 mg PO [facility] 12/26/24 01/26/25 01/26/25 04:30 aspirin 81 mg tablet,delayed 81 mg PO [facility] 12/26/24 01/26/25 01/26/25 04:30 release atorvastatin 40 mg tablet 40 mg PO 12/26/24 01/26/25 01/25/25 19:00 bumetanide 1 mg tablet 1 mg PO [facility] 12/26/24 01/26/25 01/25/25 08:00 cholecalciferol (vitamin D3) 25 25 mcg PO [facility] 12/26/24 01/26/25 2 Weeks Ago mcg (1,000 unit) tablet (Vitamin ~01/12/25 D3) coQ10 (ubiquinol) 200 mg capsule 400 mg PO [facility] 12/26/24 01/26/25 2 Weeks Ago ~01/12/25 cyanocobalamin (vitamin B-12) 2,500 mcg PO [facility] 12/26/24 01/26/25 2 Weeks Ago 2,500 mcg tablet ~01/12/25 levothyroxine 100 mcg tablet 100 mcg PO [facility] 12/26/24 01/26/25 01/26/25 04:30 magnesium citrate 100 mg capsule 100 mg PO 12/26/24 01/26/25 01/25/25 19:00 metoprolol succinate 25 mg 12.5 mg PO [facility] 12/26/24 01/26/25 01/26/25 04:30 tablet,extended release 24 hr montelukast 10 mg tablet 10 mg PO 12/26/24 01/26/25 01/25/25 19:00 pantoprazole 40 mg tablet,delayed 40 mg PO [facility] 12/26/24 01/26/25 01/26/25 04:30 release potassium chloride 20 mEq 20 meq PO BID 12/26/24 01/26/25 01/25/25 19:00 tablet,extended release sertraline 25 mg tablet 25 mg PO HS 12/26/24 01/26/25 01/25/25 19:00 turmeric 400 mg capsule 400 mg PO QAM 12/26/24 01/26/25 2 Weeks Ago ~01/12/25 zinc 50 mg capsule 50 mg PO QAM 12/26/24 01/26/25 2 Weeks Ago ~01/12/25 oxycodone 5 mg tablet 5 mg PO Q6H PRN pain #30 tabs 01/27/25 Unknown tramadol 50 mg tablet 50 mg PO Q6H PRN pain, moderate 01/27/25 Unknown #30 tabs Active Medications Generic Name Dose Route Start Last Admin Trade Name Freq PRN Reason Stop Dose Admin Acetaminophen 1,000 mg 01/26/25 15:55 01/29/25 08:26 Acetaminophen 500 Mg Tab PO 02/25/25 15:54 1,000 mg Q8H PRN Administration MILD Pain Scale 1,2,3 & Pre PT Aspirin 81 mg 01/27/25 09:00 01/29/25 08:26 Aspirin 81 Mg Ectab PO 02/26/25 08:59 81 mg QAM MATTIE Administration Atorvastatin Calcium 40 mg 01/26/25 21:00 01/28/25 20:29 Atorvastatin 40 Mg Tab PO 02/25/25 20:59 40 mg HS MATTIE Administration Bumetanide 1 mg 01/27/25 09:00 01/29/25 08:25 Bumetanide 1 Mg Tab PO 02/26/25 08:59 1 mg QAM MATTIE Administration Cyanocobalamin 2,500 mcg 01/27/25 09:00 01/29/25 08:26 Cyanocobalamin (B-12) 2,500 Mcg Tablet PO 02/26/25 08:59 2,500 mcg QAM MATTIE Administration Hydromorphone HCl 0.5 mg 01/26/25 15:55 01/26/25 16:44 Hydromorphone Inj 0.5 Mg/0.5 Ml Syr IV 02/09/25 15:54 0.5 mg Q3H PRN Administration MODERATE Pain (Scale 4,5,6) & Pre PT Levothyroxine Sodium 100 mcg 01/27/25 09:00 01/29/25 08:26 Levothyroxine Sodium 100 Mcg Tablet PO 02/26/25 08:59 100 mcg QAM MATTIE Administration Lorazepam 0.5 mg 01/26/25 15:55 01/26/25 20:32 Lorazepam 0.5 Mg Tab PO 02/25/25 15:54 0.5 mg Q8H PRN Administration Sedation/Anxiety Metoprolol Succinate 12.5 mg 01/27/25 09:00 01/27/25 08:20 Metoprolol Succ 25mg Ext Rel Tab PO 02/26/25 08:59 Not Given QAM MATTIE Montelukast Sodium 10 mg 01/26/25 21:00 01/28/25 20:29 Montelukast Sodium 10 Mg Tablet PO 02/25/25 20:59 10 mg HS MATTIE Administration Oxycodone HCl 5 - 10 mg 01/26/25 15:55 01/28/25 20:28 Oxycodone Hcl Ir 5 Mg Tab (Immediate Release) PO 02/09/25 15:54 10 mg Q4H PRN Administration Pain & Pre PT Pantoprazole Sodium 40 mg 01/27/25 09:00 01/29/25 08:25 Pantoprazole 40 Mg Tab PO 02/26/25 08:59 40 mg QAM MATTIE Administration Polyethylene Glycol 17 gm 01/27/25 06:00 01/29/25 06:14 Polyethylene (Miralax) 17 Gm Pack PO 02/26/25 05:59 Not Given Q6 MATTIE Potassium Chloride 20 meq 01/26/25 21:00 01/29/25 08:28 Potassium Chloride Crtab 20 Meq Tabcr PO 02/25/25 20:59 20 meq BID MATTIE Administration Senna/Docusate Sodium 2 tab 01/26/25 21:00 01/28/25 20:32 Docusate Sodium/Senna 50/8.6mg Tab PO 02/25/25 20:59 2 tab HS MATTIE Administration Sertraline HCl 25 mg 01/26/25 21:00 01/28/25 20:29 Sertraline Hcl 50 Mg Tablet PO 02/25/25 20:59 25 mg HS MATTIE Administration Tramadol HCl 50 - 100 mg 01/26/25 15:55 01/26/25 20:31 Tramadol Hcl 50 Mg Tablet PO 02/25/25 15:54 50 mg Q4H PRN Administration Moderate-Severe pain & Pre PT Vitamin D 25 mcg 01/27/25 09:00 01/29/25 08:26 Cholecalciferol 25 Mcg (1000 Units) Tab PO 02/26/25 08:59 25 mcg QAM MATTIE Administration (4) Hypothyroidism Hypothyroidism type: unspecified Qualified Code(s): E03.9 - Hypothyroidism, unspecified
--- NOTE | 2025-01-29 11:03 | Discharge Summary ---
Date of Service January 29, 2025 Admission HPI Per Admitting Provider This is a 74-year-old female who presents with chronic persistent back and leg pain and failed course of nonoperative care is here for surgical invention. Principal Diagnosis lumbar spondylosis with radiculopathy Discharge Data Allergies Allergy/AdvReac Type Severity Reaction Status Date / Time Iodinated Contrast Media Allergy Severe Difficulty Verified 01/26/25 08:10 Breathing codeine Allergy Intermediate fever and Verified 01/26/25 08:10 hallucination Consultations 01/26/25 15:55 Consult Hospitalist Routine Procedures Performed Operation Date: 01/26/25 09:25 Actual Procedures p L1-L2 Decompression, T11-L2 Fusion, with Spinal Cord Monitoring(Not Applicable) - Lázaro Segundo DO Ordered Studies 01/26/25 [place] lumbar spine 2-3V Routine Hospital Course (1) Multilevel lumbosacral spondylosis with radiculopathy: Patient underwent lumbar decompression fusion trial as well as taken orthopedic for postoperative. Postop condition progressed appropriately. ARTIS drain decreasing. Extra strength testing. Subsidy discharged home. Discharge orders instructions found in chart for further review. Total Time Total Time Spent Total Time Spent (In Minutes): 20 minutes Discharge Plan Discharge Items Patient Disposition: Home - Self-Care Reason For Visit: Lumbar Disc Disease, Other Spondylosis Lumbar Katey Discharge Diagnosis: Lumbar spondylosis with radiculopathy Activity: As commented below Non-emergency contact: Primary Care Provider Call non-emergency contact if: you have any medication questions Follow-up/Referrals: PCP,NO [Primary Care Provider] - Diet: Regular Addtl Attending Provider Instructions: ACTIVITY RECOMMENDATIONS: SELF CARE INSTRUCTIONS AFTER THORACIC/LUMBAR FUSIONS 1. You may walk to your tolerance. It is good exercise for your legs and back. Expect some back and intermittent leg aches and pains. 2. You may perform "counter-top" level activities (make a sandwich, rosalba with a project, etc.). 3. No bending or lifting of more than 10 pounds or back twisting of any nature (roll like a log when turning in bed). 4. You may ride in a car for 20-30 minutes at a time. No driving until after your first visit with your doctor. 5. Frequent changes of position and restricting sitting to 30 minutes at a time will help limit the amount of back spasms and stiffness you may experience. 6. You may discontinue the use of ambulatory aids (cane, crutches, etc.) once your strength and confidence allow. 7. You may drain tile press operator the shower and let water strike your incision when you arrive home at least once daily. Do not take a tub bath, sit in a hot tub or go into a swimming pool until after your first recheck in the office. 8. You may resume previous diet. SPECIAL CARE INSTRUCTIONS: VERY IMPORTANT TO READ AND REVIEW A. Your surgical incision has been closed with a cosmetic suture under the skin that will dissolve in about 6 weeks. In 14 days, you can use a pair of clean scissors and cut the suture that is left outside of the skin at the ends of your incision. 1. The small skin tapes can be removed 7 days after surgery if they have not fallen off by that point. 2. You may keep the wound open to air as much as possible to promote healing after post-op day number 5 unless told otherwise by your doctor. 3. If you think the wound looks like it is becoming infected (redness or worsening drainage) and/or you are experiencing fever, chill or worsening back pain and muscle spasms, contact the office so that we may evaluate you as soon as possible. B. Complications are uncommon, but please contact us if you have any signs or symptoms of: 1. wound infection (fever higher than 102.5 degrees F, redness, separation of wound, drainage, or increasing pain from the incision) 2. blood clots in legs (pain, swelling, redness and warmth in legs) 3. urinary tract infection (fever higher than 102.5 degrees F, burning upon urination or increased frequency of urination) 4. nerve problems (inability to walk on your toes or heels, numbness, loss of bowel or bladder control) 5. any other symptoms that concern you C. Please call the office at if you have any concerns or questions about your operation or recovery. D. No smoking! Smoking drastically decreases the chance of a solid fusion. E. Do not take any anti-inflammatory medications (Indocin, Advil, Motrin, Aspirin, Naprosyn, etc.) as these may inhibit the chance of a solid fusion. Tylenol is okay to take for pain. MANAGING PAIN AFTER SPINAL SURGERY 1. Narcotic medication is intended for short-term use and will be provided for surgical pain. Surgical pain usually lasts for a period of 4-6 weeks. Narcotic medication includes Percocet, Vicodin, Darvocet, Tylenol #3 or Lortab. 2. Longer-term pain is more appropriately treated with non-narcotic medication such as Tylenol ES. 3. Muscle spasm is not appropriately treated with narcotics. Muscle relaxers such as Soma, Flexeril or Skelaxin can be used along with Tylenol ES. 4. Remember that we all live with some "aches and pains". This is not unusual or uncommon after an injury or as we get older. a. Back pain is expected and may include muscle spasms for 4 to 6 weeks after surgery. The pain should gradually improve. If the pain worsens for no apparent reason, please contact the office. b. Intermittent leg pain may also be experienced and should not be concerned about unless it worsens for no apparent reason. If so, please contact the office. 5. We will provide appropriate medication within the normal guidelines of their prescribed use. We will also be very cautious and aware of potential abuse and extended duration of patients' medication needs. a. Pain medications are for your comfort and to assist with sleep and rest so that the tissue can heal. They are not provided in order to return to normal activity and should not be used through the day. To do so or worsening pain at night can result from ongoing tissue damage and development of tolerance to the prescribed medicine. 6. Please allow 2-3 days to process refills. Prescriptions will not be mailed but must be picked up at the office. FOLLOW UP VISIT: Keep your scheduled follow-up appointment. Any questions, please call the office at . Addtl Kinesiology Professor Provider Instructions: Please discuss Metoprolol with your PCP or Science Interpreter. Your heart rates were documented as low as 38; this was held as a precaution given your procedure to prevent potential for falls or event. Pending Studies at Discharge: No Stand-Alone Forms: My [employer], Smoking Cessation Medications and DC Order Prescriptions: New tramadol 50 mg tablet 50 mg PO Q6H PRN (Reason: pain, moderate) Qty: 30 0RF oxycodone 5 mg tablet 5 mg PO Q6H PRN (Reason: pain) Qty: 30 0RF Continued atorvastatin 40 mg Tablet 40 mg PO HS acyclovir 400 mg Tablet 400 mg PO QAM Patient Comments: takes daily>to prevent shingles aspirin [Aspir-81] 81 mg Tablet,Delayed Release (Dr/Ec) 81 mg PO QAM pantoprazole 40 mg Tablet,Delayed Release (Dr/Ec) 40 mg PO QAM sertraline 25 mg Tablet 25 mg PO HS montelukast 10 mg Tablet 10 mg PO HS zinc 50 mg Capsule 50 mg PO QAM cholecalciferol (vitamin D3) [Vitamin D3] 25 mcg (1,000 unit) Tablet 25 mcg PO QAM coQ10 (ubiquinol) 200 mg Capsule 400 mg PO QAM potassium chloride 20 mEq Tablet Extended Release 20 meq PO BID cyanocobalamin (vitamin B-12) 2,500 mcg Tablet 2,500 mcg PO QAM turmeric 400 mg Capsule 400 mg PO QAM magnesium citrate 100 mg Capsule 100 mg PO HS levothyroxine 100 mcg Tablet 100 mcg PO QAM bumetanide 1 mg Tablet 1 mg PO QAM Held metoprolol succinate 25 mg Tablet Extended Release 24 Hr 12.5 mg PO QAM Discharge Orders: Discharge Order (Routine); Ordered 01/29/25 Ordered By: Lázaro Segundo Admission Data Admit Date/Time: 01/26/25 12:15 Attending Provider: Lázaro Segundo Admit Provider: Lázaro Segundo Primary Care Provider: PCP,NO Other Providers: Larissa Medrano
== END 2025-01-29 14:08 | disposition home or self-care (01) | DRG 427 ==
LOC: ASU 07:28 → PACUINP 12:15 → 3E 15:46